=== PATIENT | female | born 1935 | race Caucasian/White ===

== ENCOUNTER 2021-03-25 14:39 | Emergency (ER) | payer BC ==
[2021-03-25 14:56] VITALS: TEMP 98.2; BMI 23.3
[2021-03-25] MEDS ORDERED: BAMLANIVIMAB 700 MG, ETESEVIMAB 1,400 MG in SODIUM CHLORIDE 100 ML IVPB ONE (15:33)
[2021-03-25 19:01] VITALS: BP 153/56; PULSE 61
== END 2021-03-25 19:02 ==
LOC: JCOVINFU 14:39
DX: U07.1 COVID-19 (principal)
CPT/HCPCS: 99284-25; M0245; Q0239; Q0245